=== PATIENT | male | born 2000 | race Caucasian/White ===

== ENCOUNTER 2020-10-22 16:16 | Outpatient (CLI) | payer OTHER, SELFPAY | END 2020-10-22 16:17 | disposition home or self-care (01) | LOC: ANHCOVIDVC 16:16 | PROVIDERS: PCP Family Medicine | DX: Z23 Encounter for immunization (principal) | CPT/HCPCS: 0001A; 91300 ==

== ENCOUNTER 2020-11-12 16:15 | Outpatient (CLI) | payer OTHER, SELFPAY | END 2020-11-12 16:16 | disposition home or self-care (01) | LOC: ANHCOVIDVC 16:15 | PROVIDERS: PCP Family Medicine | DX: Z23 Encounter for immunization (principal) | CPT/HCPCS: 0002A; 91300 ==

== ENCOUNTER 2022-05-18 08:00 | Outpatient (NON) | payer OTHER, SELFPAY | END 2022-05-18 08:01 | disposition home or self-care (01) | LOC: ANHLAB 05-19 07:48 | PROVIDERS: PCP Family Medicine; Visit Provider Internal Medicine Gastroenterology | DX: R19.7 Diarrhea, unspecified (principal) | CPT/HCPCS: 88305 ==

== ENCOUNTER 2022-05-18 10:31 | Day surgery (SDC) | payer OTHER, SELFPAY ==
[2022-03-23 08:18] VITALS: BMI 36.2
[2022-05-05 09:05] VITALS: BMI 34.0
[2022-05-18] MEDS: LACTATED RINGERS 1,000 ML 150 ML IV CONT (11:19)
--- NOTE | 2022-05-18 12:19 | P.PNAN_ITS ---
Anes - Initial Pre Proc Eval Procedure: Operation Date: 05/18/22 12:30 Proposed Procedures p Diagnostic Colonoscopy - Neptali Castle MD Date/Time: 05/18/22 12:19 Surgeon: Neptali Castle MD Pre Op Diagnosis: Diarrhea, Bloody Stool Patient Data Age: 22 Gender: M Height: 1.88 m Weight: 127.4 kg Allergies Allergy/AdvReac Type Severity Reaction Status Date / Time No Known Allergies Allergy Unknown Verified 05/18/22 11:07 Home Medications Medication Instructions Recorded Confirmed Type dextroamphetamine-amphetamine 20 20 mg PO DAILY 03/15/22 05/18/22 History mg tablet (Adderall) sodium,potassium,mag sulfates 17.5 See Rx Instructions PO .COMPLEX 03/22/22 05/18/22 Rx gram-3.13 gram-1.6 gram oral soln #354 mL (Suprep Bowel Prep Kit) Patient hx anesthesia problems: none Family hx anesthesia problems: none Results Review: All pre-operative results and documents have been reviewed as part of the pre- operative evaluation. [facility] Past Medical History Medical History Abdominal pain Obese Family History Family History Other Diabetes mellitus Family history of cardiovascular disease Hypertension Social History Social History Years smoked: 4 Smoking status: Current every day smoker Tobacco type: e-cigarettes/vaping Alcohol intake: current Drinks per week: 1 Alcohol use details: EVERY FEW MONTHS Substance use: current Substance use type: marijuana Other substance usage details: DAILY Last use: YESTERDAY Living arrangements: with family Spiritual care concerns: No Anes - Eval Final PreProcedure Day of Procedure 05/18/22 12:19 Patient weight: obese Heart: regular rate and rhythm Lungs: clear to auscultation Airway: Mallampati scale class II Neurological: alert and oriented Last oral intake: >/= 8 hours ASA classification: II Emergent: no Anesthetic plan: proceed Anesthesia type and monitoring: general GIVS and standard monitoring Results Review: All pre-operative results and documents have been reviewed as part of the pre- operative evaluation. Informed Consent: The patient's anesthetic plan and its attendant risks and benefits were discussed with the patient/family/POA. Questions were solicited and answers provided to the satisfaction of the patient/family/POA.
--- NOTE | 2022-05-18 12:37 | PM.HPGS ---
History of Present Illness History of Present Illness Consent: Risks, benefits, and alternatives have been discussed and questions answered. Patient agrees to proceed with procedure. Chief complaint: Diarrhea, Bloody Stool Narrative: Surjit Gomez is a 22 year old male Presents for colonoscopy. Patient reports over the last 1-2 years he has had frequent loose stools. Stools typically are soft up to 4 a day. He frequently will have blood in stools. He states he does not always visible. Sometimes old stool looks bloody sometimes just the toilet bowl. Sometimes streaky. He rarely will have a normal stool. He denies any fever. He has had no travel. No one else in the family has illness. His father 1 time was told that father had colitis . Patient presents today for colonoscopy to evaluate more thoroughly. Previous stool cultures have been noncontributory. Patient is on no specific medications. Review of Systems Review of Systems: Review of systems noncontributory. PMFSH Past Medical History Medical History Abdominal pain Obese Family History Family History Other Diabetes mellitus Family history of cardiovascular disease Hypertension Social History Social History Years smoked: 4 Smoking status: Current every day smoker Tobacco type: e-cigarettes/vaping Alcohol intake: current Drinks per week: 1 Alcohol use details: EVERY FEW MONTHS Substance use: current Substance use type: marijuana Other substance usage details: DAILY Last use: YESTERDAY Living arrangements: with family Spiritual care concerns: No Meds Home Medications and Allergies Home Medications Medication Instructions Recorded Confirmed Type dextroamphetamine-amphetamine 20 20 mg PO DAILY 03/15/22 05/18/22 History mg tablet (Adderall) sodium,potassium,mag sulfates 17.5 See Rx Instructions PO .COMPLEX 03/22/22 05/18/22 Rx gram-3.13 gram-1.6 gram oral soln #354 mL (Suprep Bowel Prep Kit) Allergies Allergy/AdvReac Type Severity Reaction Status Date / Time No Known Allergies Allergy Unknown Verified 05/18/22 11:07 Exam Narrative: Physical exam reveals patient to be alert. Vital signs stable. HEENT exam is unremarkable. Patient is anicteric. Lungs are clear to auscultation and percussion. Heart is without murmur or extra sounds. Abdomen bowel sounds present soft nontender with no organomegaly. Digital external rectal exam normal. Assessment and Plan Assessment and plan (1) Chronic diarrhea: Code(s): K52.9 - Noninfective gastroenteritis and colitis, unspecified Status: Acute Assessment and Plan: Patient with bloody diarrhea that is occurred chronically. Suspicious for inflammatory bowel disease. Cultures have been negative. Plan for colonoscopy further recommendations will be given after endoscopy. (2) Blood in stool: Code(s): K92.1 - Melena Status: Acute
[2022-05-18 12:58] VITALS: BP 107/58; PULSE 68; RESP 12; O2SAT 97
[2022-05-18 13:08] VITALS: BP 103/59; PULSE 56; RESP 12; O2SAT 99
[2022-05-18 13:18] VITALS: BP 118/69; PULSE 60; RESP 13; O2SAT 100
--- NOTE | 2022-05-18 13:26 | WPDANESPN ---
Anes - Prog Note Post-Op Date/Time: 05/18/22 13:26 Cardiovascular status: normal Respiratory status: normal Airway patency: baseline Mental status: baseline Post-Op hydration status: normal Vital Signs: Last Vital Signs Pulse 60 05/18/22 13:18 Resp 13 05/18/22 13:18 BP 118/69 05/18/22 13:18 Pulse Ox 100 05/18/22 13:18 O2 Del Method Room Air 05/18/22 13:18 Pain Score (VAS): 0/10 I/O: Intake & Output 05/17/22 05/18/22 05/18/22 23:59 07:59 15:59 Intake Total 500 Balance 500 Patient Feedback: Patient satisfied with anesthetic care.
== END 2022-05-18 13:39 | disposition home or self-care (01) ==
PROVIDERS: PCP Family Medicine; Visit Provider Internal Medicine Gastroenterology
PROC: 0DJD8ZZ Inspection of Lower Intestinal Tract, Via Natural or Artificial Opening Endoscopic (ICD-10-PCS; CPT 45378; principal; 2022-05-18 12:30)
DX: R19.7 Diarrhea, unspecified (principal)
CPT/HCPCS: 45380

== ENCOUNTER 2022-09-25 13:34 | Outpatient (CLI) | payer OTHER, SELFPAY ==
--- NOTE | ~2022-09-25 | XR_ITS ---
XR toe 1st LT min 2V DATE: 09/25/2022 13:53 INDICATION: Great toe pain, swelling, bruising after injury TECHNIQUE: 4 views COMPARISON: 03/24/2013 left foot FINDINGS: No fracture or dislocation, periosteal reaction or bone destruction. Joint spaces are prese rved. No subcutaneous emphysema or soft tissue calcification or radiopaque foreign body. IMPRESSION: No significant bony abnormality Reviewed, dictated and finalized at location B.
== END 2022-09-25 13:35 | disposition home or self-care (01) ==
LOC: ANHIMG 13:36
PROVIDERS: PCP Family Medicine; Visit Provider Family Medicine
DX: S99.922A Unspecified injury of left foot, initial encounter (principal); X58.XXXA Exposure to other specified factors, initial encounter
CPT/HCPCS: 73660

== ENCOUNTER 2023-06-26 16:11 | Outpatient (CLI) | payer OTHER, SELFPAY ==
--- NOTE | ~2023-06-26 | XR_ITS ---
EXAMINATION: XR shoulder RT min 2V DATE: 06/26/2023 16:23 INDICATION: Right shoulder pain. TECHNIQUE: 4 views of right shoulder were obtained. COMPARISON: None. FINDINGS: Bone alignment is normal. No fracture. Glenohumeral joint is normal. There is mild acromioc lavicular joint osteoarthritis. IMPRESSION: 1. Mild acromioclavicular joint osteoarthritis. Reviewed, dictated and finalized at location E. T PRESSER
== END 2023-06-26 16:12 ==
PROVIDERS: PCP Family Medicine; Visit Provider Physician Assistant
DX: M19.011 Primary osteoarthritis, right shoulder (principal)
CPT/HCPCS: 73030

== ENCOUNTER 2023-08-15 10:37 | Outpatient (CLI) | payer OTHER, SELFPAY ==
--- NOTE | ~2023-08-15 | MR_ITS ---
MRI of the right shoulder Technique: Axial proton-density fat-sat images, coronal proton density fat-sat and T2 fat-sat images, and sagittal T1-weighted and T2 fat-sat images were acquired. Clinical History: Pain Findings: There is no significant degenerative change at the AC joint. No subacromial spur. Coracocla vicular, coracoacromial, and coracohumeral ligaments are intact. Supraspinatus and infraspinatus tendons are intact, without partial or full-thickness tear. Subscapul lizzette tendon is intact. Tendon of the long head of the biceps is intact. Glenoid labrum is intact, without evidence of tear. Inferior glenohumeral ligament is intact. No effusion or degenerative change of the glenohumeral join t. No fluid distention of the subacromial/subdeltoid bursa. No muscle atrophy or edema. Impression: Unremarkable exam. Reviewed, dictated and finalized at [facility]. IC[facility] HAEMATOLOGIST Impression: Unremarkable exam.
== END 2023-08-15 10:38 ==
PROVIDERS: PCP Physician Assistant; Visit Provider Physician Assistant
DX: M25.511 Pain in right shoulder (principal)
CPT/HCPCS: 73221